=== PATIENT | female | born 1990 | race Caucasian/White ===

== ENCOUNTER 2017-05-12 09:30 | Outpatient (CLI) | payer BC ==
[~2017-05-12] VITALS: Ht 157.5 cm; Wt 58.2 kg
[2017-05-12 10:22] VITALS: BP 104/63; PULSE 83; RESP 16; Ht 157.5 cm; Wt 58.2 kg
[2017-05-12] MEDS ORDERED: FLUO10CA66 PO (13:16)
[2017-05-12] MEDS ORDERED: ALPR0.5T PO (13:17)
--- NOTE | 2017-05-12 13:34 | PN ---
Date/Time of Note Date/Time of Note DATE: 05/12/17 TIME: 13:33 Assessment/Plan Assessment/Plan Assessment/Plan [facility] Progress Note Date of Service: 05/12/17 Today's Impression & Plan: Overall doing well post laparoscopic appendectomy for acute appendicitis at [facility] on 05/07/2017. No obvious evidence for major postoperative complications or surgical site infections. Patient has a scheduled trip to [place] at the end of this week. I was very clear that there was no way to guarantee that she will not have problems if she decides to go on her trip. I strongly recommended that she obtains a good travel health insurance so that she has access to care if needed. I still believe that the realistic chances of her having major problems are low and that she can probably go to a trip without any significant difficulty. Patient appeared to understand and agreed with plans. 1. F/u with PCP 2. F/u with us prn 3. If patient decides to go on her trip to [place], I strongly recommended that she obtains a good travel health insurance in order to maintain access to care in case complications arise. She clearly understood that the safest approach would be to cancel her trip for now. 4. Wean off pain medications before going on trip Thank you again for allowing us to participate in the care of this very pleasant lady and her wonderful family. If there are any questions, please feel free to call me at area code [phone]. Nature presenting problem: Moderate risk Complexity decision making: Moderate complexity Please note: Spelling or grammatical errors in this note are likely due to EHR/ dictation systems and are not reflective of patient care quality. Occasional wrong-word or sound-alike substitutions may have occurred due to the inherent limitations of voice recognition software. Please read the chart carefully and recognize, using context, where the substitutions have occurred. The chart may also contain mistakes due to difficulties with voice recognition software. Also please note that the dictation timestamp of this note does not necessarily reflected time of the visit for this service. Updated clinical summary: Very pleasant 27-year-old lady with abdominal pain consistent with acute appendicitis, s/p lap appy [facility] 05/07/17 for acute appendicitis with periappendicitis. D/c home 05/08/17. Comorbidities: 1. Anxiety 2. IBS 3. Depression 4. Acute appendicitis, s/p lap appy [facility] 05/07/17 for acute appendicitis with periappendicitis Subjective: No major events or complaints since discharge home. No major pain complaints and reportedly under control with medications. No N/V, SOB or CP. + bowel activity. Objective: Vitals: reviewed; please also see EHR Physical Exam: Lungs: breathing comfortably without tachypnea; no audible wheezes, rales or rhonchi on gross exam Abd: Soft, non-tender, and non-distended; no peritoneal signs or guarding; incisions c/d/i w/o obvious e/e/d/h Skin: Appears pink and feels warm to touch. Neuro: Awake, alert and follows commands appropriately Exam/Review of Systems Vital Signs Vitals Vital Signs Date Time Temp Pulse Resp B/P Pulse Ox O2 Delivery O2 Flow Rate FiO2 05/12/17 10:22 98.3 83 16 104/63 94 Room Air MERCEDES KIM M.D. May 12, 2017 13:34
== END 2017-05-12 17:00 | disposition home or self-care (01) ==
LOC: HPC 09:30
PROVIDERS: ATTEND Transplant Surgery
DX: K35.80 Unspecified acute appendicitis (principal); F41.8 Other specified anxiety disorders; K58.9 Irritable bowel syndrome, unspecified
CPT/HCPCS: G0463

== ENCOUNTER 2017-06-11 14:47 | Outpatient (CLI) | payer BC ==
[~2017-06-11] VITALS: Ht 157.5 cm; Wt 57.3 kg
[~2017-06-11 14:47] MED LIST: ALPR0.5T PO; FLUO10CA66 PO
[2017-06-11 14:54] VITALS: BP 111/55; PULSE 76; RESP 18; Ht 157.5 cm; Wt 57.3 kg
--- NOTE | 2017-06-11 15:10 | PN ---
Date/Time of Note Date/Time of Note DATE: 06/11/17 TIME: 15:04 Assessment/Plan Assessment/Plan Assessment/Plan [facility] Progress Note Date of Service: 06/11/17 Today's Impression & Plan: Overall stable with ongoing issues with abdominal discomfort near the umbilicus. I did not get any sense of major issues including no evidence for infection, hernia, or intra-abdominal major process. Please note that patient also has ongoing issues with IBS and is currently being worked up for bowel problems as well as memory loss (MRI of the brain ordered). Medications are also being changed by gastroenterology. Patient being seen in the student clinic and does not have one single physician that has been taking care of her. We discussed the risks and benefits of doing a CAT scan of the abdomen, but I was able to reassure the patient that at this time, there is no strong indication for 1 and for this reason, we decided to follow her clinically. Patient had all her questions answered and she appeared to be comfortable with the above plan and wished to proceed. 1. F/u with PCP 2. F/u with us prn 3. If patient still has symptoms, to consider performing a CT scan of abdomen and pelvis with IV and oral contrast. Patient understood to call my office or my practice number at any time if above happened. Thank you again for allowing us to participate in the care of this very pleasant lady and her wonderful family. If there are any questions, please feel free to call me at area code [phone]. Nature presenting problem: Moderate risk Complexity decision making: Moderate complexity Please note: Spelling or grammatical errors in this note are likely due to EHR/ dictation systems and are not reflective of patient care quality. Occasional wrong-word or sound-alike substitutions may have occurred due to the inherent limitations of voice recognition software. Please read the chart carefully and recognize, using context, where the substitutions have occurred. The chart may also contain mistakes due to difficulties with voice recognition software. Also please note that the dictation timestamp of this note does not necessarily reflected time of the visit for this service. Updated clinical summary: Very pleasant 27-year-old lady with abdominal pain consistent with acute appendicitis, s/p lap appy [facility] 05/07/17 for acute appendicitis with periappendicitis. D/c home 05/08/17. Comorbidities: 1. Anxiety 2. IBS 3. Depression 4. Acute appendicitis, s/p lap appy [facility] 05/07/17 for acute appendicitis with periappendicitis Subjective: No major events or complaints since discharge home. Patient did go to her trip to [place], but had to cut the trip short and come back due to ongoing issues with nausea at that time. Currently, her main issues are minor discomfort in the umbilicus. This was the reason for the second visit for her. She felt hot but did not measure her temperature (reported that she does not have a thermometer). She does describe ongoing changes with diarrhea and constipation. No other major pain complaints. No current N/V, SOB or CP. + bowel activity. Objective: Vitals: reviewed; please also see EHR Physical Exam: Lungs: breathing comfortably without tachypnea; no audible wheezes, rales or rhonchi on gross exam Abd: Soft, non-tender, and non-distended; no peritoneal signs or guarding; incisions c/d/i w/o obvious e/e/d/h Skin: Appears pink and feels warm to touch. Neuro: Awake, alert and follows commands appropriately Exam/Review of Systems Vital Signs Vitals Vital Signs Date Time Temp Pulse Resp B/P Pulse Ox O2 Delivery O2 Flow Rate FiO2 06/11/17 14:54 97.7 76 18 111/55 98 Room Air MERCEDES KIM M.D. Jun 11, 2017 15:10
== END 2017-06-11 17:00 | disposition home or self-care (01) ==
LOC: HPC 14:47
PROVIDERS: ATTEND Transplant Surgery
DX: R10.33 Periumbilical pain (principal); F41.9 Anxiety disorder, unspecified; F32.9 Major depressive disorder, single episode, unspecified
CPT/HCPCS: G0463

== ENCOUNTER 2017-09-15 00:53 | Emergency (ER) | END 2017-09-15 02:43 | disposition home or self-care (01) ==